=== PATIENT | female | born 1995 | race Caucasian/White ===

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

== ENCOUNTER 2022-10-22 07:36 | Inpatient (IN) ==
[2022-10-22] MEDS ORDERED: OXYTOCIN 30 UNITS/500 ML BAG IV PRN ×3 (08:54→20:18)
[2022-10-22] MEDS ORDERED: LIDOCAINE 1% LOCAL 20 ML VIAL INFIL PRN (08:54)
[2022-10-22] MEDS ORDERED: PENICILLIN G POTASSIUM 6 MU in DEXTROSE 5% 250 ML IV ONE (09:15)
[2022-10-22 09:21] LABS: Hematocrit (blood only) 31.1 % (37.0-47.0); Hemoglobin 10.5 g/dl (12.0-16.0); Mean Corpuscular Hemoglobin 29.3 pg (25.0-34.0); Mean Corpuscular Hgb Conc 33.8 g/dL (32.0-36.0); Mean Corpuscular Volume 86.9 fL (80.0-100.0); Mean Platelet Volume 11.2 fL (9.4-12.4); Platelet Count 201 K/uL (130-400); RDW Coefficient of Variation 13.6 % (11.5-14.5); RDW Standard Deviation 42.4 fL (36.4-46.3); Red Blood Count 3.58 M/uL (4.20-5.40); White Blood Count 8.13 K/ul (4.8-10.8)
[2022-10-22] MEDS: LACTATED RINGER'S 1,000 ML IV PRN ×3 (09:37→16:29)
--- NOTE | 2022-10-22 10:37 | History & Physical Report ---
Date of Service October 22, 2022 Assessment & Plan (1) Encounter for supervision of normal in multigravida, antepartum: Plan: Multiparous female who presents at 39-6/7 weeks with a large for gestational age infant. GBS positive. A cervical balloon was successfully placed as Pitocin induction was begun. GBS prophylaxis was also begun at the initiation of the induction. Anticipate vaginal Epidural when requested. Admission and Anticipated Discharge Date Admission Date: October 22, 2022 History of Present Illness Primary Care Provider: Brianda Sen DO Patient is a 27-year-old 2 para 1-0-0-1 female EDC of 10/23/2022 who presents for induction of labor because of prior macrosomic . Growth scan done at 36 weeks reveals an estimated weight of 8 pounds 4 ounces. was complicated by mild cholestasis of however bile acids have been normal recently. testing has been reassuring. Group B strep is positive. First weighed 9 pounds 5 ounces at 40 weeks. Allergies Allergy/AdvReac Type Severity Reaction Status Date / Time metoclopramide Allergy Severe hives, Verified 10/21/22 15:04 breathing difficulty chlorhexidine Allergy Intermediate blisters Verified 10/21/22 15:04 isopropyl alcohol Allergy Intermediate blisters Verified 10/21/22 15:04 Home Medications Medication Instructions Recorded Confirmed Type No Known Home Medications 05/07/22 10/21/22 History Patient History Medical History (Updated 10/22/22 @ 07:59 by Randa Patterson RN) History of COVID-19 07/2020; loss of taste/smell, fatigue, body aches; resolved. Hyperemesis gravidarum before end of 22 week gestation with dehydration Pap smear vag w ASC-US + Hpv Surgical History H/O colonoscopy H/O ventral hernia repair (01/04/21) Ventral Hernia Open Repair Dr. Lange 01-04-2021 History of appendectomy History of wisdom tooth extraction Family History Other Breast cancer Diabetes Heart disease No family history of adverse response to anesthesia Social History (Updated 10/22/22 @ 08:01 by Randa Patterson, ALTA) Smoking Status: Former smoker Tobacco Type: E-cigarettes / Vaping Cigarettes Per Day: 5 cig per day; Second Hand Exposure: No; Do You Dip or Chew Tobacco: No; Hx Alcohol Use: No Hx Substance Use: No Preferred Language: [place] Citizen Communication Ability: Effective Informatics Nurse Specialist Required: No Beliefs That Will Affect Care: None marital status: Single marital status details: Olayinka Ghosh (31) [phone] Current Living Situation: Significant Other Current Living Situation Comment: Lives with FOSuzanne, her daughter, and Usman's 3 children current occupational status: employed current occupation: Workers Compensation Adjuster @ [employer] How many Children do You have: 1 Other Information That Helps Us Care for You: No Feels Safe at Home: Yes Safety Concerns: Feels Safe At This Time during the past year weight has: remained stable Assistive Devices: Contacts and Glasses Review of Systems All systems reviewed & are unremarkable except as noted in HPI & below Physical Exam Constitutional: WD/WN, vitals as above Psychiatric: A+Ox3, euthymic affect Genitourinary: OB Exam Abdomen: + vertex, + estimated weight (8-9 pounds) and + irregular contractions Manual OB Exam: + cervical dilation 2 cm, + cervical effacement 70% and + station -2 (posterior) OB Exam Monitor Tracing: + external FHT monitor used, + external uterine monitor used, + darell gory I and + normal FHT variability cervix visualized and chaney catheter easily inserted into the cervical os. the balloon was filled with 40 cc sterile water. the catheter was then placed on traction and secured to her left thigh. she tolerated the procedure well. Results & Data Vital Signs (Past 12 Hours) Vital Signs Temp Pulse Resp BP 10/22/22 08:02 98.2 F 18 10/22/22 10:29 88 105/54 L 10/22/22 09:44 80 111/64 10/22/22 07:53 85 127/67 Coding Level of Care Code None Diagnoses Encounter for supervision of normal in multigravida, antepartum Z34.80 CPT Codes Misx Procedure Codes - 16395 Placement of cervical dilator: 47184 Placement of cervical dilator ([id number])
[2022-10-22] MEDS ORDERED: fentaNYL citrate PF 100 MCG/2 ML VIAL ONE (13:27)
[2022-10-22] MEDS ORDERED: ePHEDrine sulfate 50 MG/ML AMP ONE (13:27)
[2022-10-22] MEDS ORDERED: BUPIVACAINE 0.25% PF 30 ML VIAL ONE (13:27)
[2022-10-22] MEDS ORDERED: SODIUM CHLORIDE 0.9% PF INJ 10 ML VIAL ONE (13:27)
[2022-10-22] MEDS ORDERED: fentaNYL 2MCG/ML ROPIVACAINE 1.25MG/ML 100 ML BAG EPI ONE (13:28)
[2022-10-22] MEDS ORDERED: LIDOCAINE 2%/EPINEPHRINE 1:200,000 20 ML PF ONE (13:28)
[2022-10-22] MEDS: PENICILLIN G POTASSIUM 3 MU in DEXTROSE 5% 100 ML IV PRN ×2 (13:39→18:12)
[2022-10-22] MEDS ORDERED: NALBUPHINE HCL INJ 10 MG/ML AMP IV PRN (14:31)
[2022-10-22] MEDS ORDERED: BUPIVACAINE 0.25% PF 30 ML VIAL EPI PRN (14:31)
[2022-10-22] MEDS ORDERED: diphenhydrAMINE 50 MG/ML VIAL IV PRN (14:31)
[2022-10-22] MEDS ORDERED: NALOXONE HCL 1 MG in SODIUM CHLORIDE 0.9% 1000ML 1,000 ML IV PRN (14:31)
[2022-10-22] MEDS ORDERED: ePHEDrine sulfate 50 MG/ML AMP IV PRN (14:31)
[2022-10-22] MEDS ORDERED: fentaNYL 2MCG/ML ROPIVACAINE 1.25MG/ML 100 ML BAG EPI PRN (14:31)
[2022-10-22] MEDS ORDERED: ROPIVACAINE 0.5% PF 5 MG/ML 20 ML VIAL EPI PRN (14:31)
[2022-10-22] MEDS ORDERED: LIDOCAINE 2%/EPINEPHRINE 1:200,000 20 ML PF EPI STA (14:31)
[2022-10-22] MEDS ORDERED: fentaNYL citrate PF 100 MCG/2 ML VIAL EPI PRN (14:31)
[2022-10-22] MEDS ORDERED: SODIUM CHLORIDE 0.9% PF INJ 10 ML VIAL EPI PRN (14:31)
[2022-10-22] MEDS ORDERED: SODIUM CHLORIDE 0.9% PF INJ 10 ML VIAL EPI STA (14:31)
[2022-10-22] MEDS ORDERED: fentaNYL citrate PF 100 MCG/2 ML VIAL EPI STA (14:31)
[2022-10-22] MEDS ORDERED: LIDOCAINE 2% MPF LOCAL 5 ML VIAL EPI PRN (14:31)
[2022-10-22] MEDS ORDERED: NALOXONE HCL 0.4 MG/1 ML VIAL/CARP IV PRN (14:31)
[2022-10-22] MEDS ORDERED: BUPIVACAINE 0.25% PF 30 ML VIAL EPI STA (14:31)
--- NOTE | 2022-10-22 14:31 | Anesthesiology Consultation ---
Date of Service October 22, 2022 Assessment & Plan (1) Encounter for pre-operative examination: Chart Review Chart Review: Patient NOT seen in Pre Admission Testing and Acceptable Risk for Labor Epidural Consults Requested none History Height/Weight Height: 5 ft 4 in Weight: 86.183 kg Allergies Allergy/AdvReac Type Severity Reaction Status Date / Time metoclopramide Allergy Severe hives, Verified 10/21/22 15:04 breathing difficulty chlorhexidine Allergy Intermediate blisters Verified 10/21/22 15:04 isopropyl alcohol Allergy Intermediate blisters Verified 10/21/22 15:04 Medications Home Medications Medication Instructions Recorded Confirmed Last Taken No Known Home Medications 05/07/22 10/21/22 Unknown Active Medications Generic Name Dose Route Start Last Admin Trade Name Freq PRN Reason Stop Dose Admin Lactated Ringer's 1,000 mls @ 125 mls/hr 10/22/22 08:54 10/22/22 13:56 Lr IV 10/24/22 08:53 999 mls/hr .Q8H PRN Infusion L&D Protocol Protocol Penicillin G Potassium 3 mu/ 106 mls @ 100 mls/hr 10/22/22 11:54 10/22/22 13:39 Dextrose IV 11/01/22 11:53 100 mls/hr Q4H PRN Administration GBS(+) Until Delivery Oxytocin 30 units in 500 mls @ 14 mls/hr 10/22/22 08:54 10/22/22 13:57 Pitocin IV 10/24/22 08:53 0.84 units/hr .Q24H PRN 14 mls/hr Labor Induction/Augmentation Titration Protocol 0.84 UNITS/HR Past Medical History Medical History History of COVID-19 07/2020; loss of taste/smell, fatigue, body aches; resolved. Hyperemesis gravidarum before end of 22 week gestation with dehydration Pap smear vag w ASC-US + Hpv Past Family History Family History Other Breast cancer Diabetes Heart disease No family history of adverse response to anesthesia Past Surgical History Surgical History H/O colonoscopy H/O ventral hernia repair (01/04/21) Ventral Hernia Open Repair Dr. Lange 01-04-2021 History of appendectomy History of wisdom tooth extraction Social History Smoking Status: Former smoker tobacco type: cigarettes Smoking cigarettes per day: 5 cig per day Do You Dip or Chew Tobacco: No Hx Alcohol Use: No Hx Substance Use: No substance use type: does not use Physical Exam Vital Signs Last Vital Signs Temp 98.2 F 10/22/22 10:59 Pulse 71 10/22/22 13:58 Resp 20 10/22/22 13:58 BP 109/68 10/22/22 13:58 Testing Laboratory Results 10/22/22 08:41
[2022-10-22] MEDS ORDERED: HYDROCORTISONE ACETATE 25 MG SUPP PR PRN (20:18)
[2022-10-22] MEDS ORDERED: DIPHTHERIA/TETANUS/PERTUSSIS Vaccine (Tdap, Age 7+yrs) 0.5mL SYR/VL IM ONE (20:18)
[2022-10-22] MEDS ORDERED: oxyCODONE/ACETAMINOPHEN 5mg/325mg TAB PO PRN (20:18)
[2022-10-22] MEDS ORDERED: bisacodyL 10 MG SUPP PR PRN (20:18)
[2022-10-22] MEDS ORDERED: ACETAMINOPHEN 325 MG TAB PO PRN (20:18)
[2022-10-22] MEDS ORDERED: BENZOCAINE 20% AER SPR 82.5 GM CAN EXT PRN (20:18)
--- NOTE | 2022-10-22 21:09 | Delivery Summary ---
Vaginal Delivery Summary Date of Service October 22, 2022 Vaginal Delivery Summary [facility] Patient is a 27-year-old 2 para 1-0-0-1 female who presents for induction of labor. Her prior weighed 9 pounds 5 ounces. She received a cervical balloon and Pitocin induction per protocol. The balloon was expelled after several hours. She received effective epidural analgesia. Membranes were ruptured for clear fluid. She progressed to full dilation and pushed effectively over intact perineum for delivery of a viable female infant. After the head was delivered, the shoulders also delivered easily and the was placed on the mother's abdomen for further attention and drying. After initial stimulation she was vigorous, crying, and moving all 4 limbs. The cord was short and therefore was cut and clamped prior to putting the infant on the mother's abdomen. After cord blood was obtained, the placenta was expressed intact with a three-vessel cord. bleeding was controlled with dilute Pitocin and fundal massage. Estimated blood loss was 400 cc. Mother and infant were doing well after delivery. [facility] [place]ag[place] Delivery Charge Delivery Type Details: [facility]
[2022-10-22] MEDS: IBUPROFEN 600 MG TAB PO PRN (22:17)
[2022-10-22] MEDS: DOCUSATE SODIUM 100 MG CAP PO SCH (22:17)
[2022-10-23 06:23] LABS: Hemoglobin 9.3 g/dl (12.0-16.0); Mean Corpuscular Hemoglobin 28.2 pg (25.0-34.0); Mean Corpuscular Hgb Conc 32.1 g/dL (32.0-36.0); Mean Corpuscular Volume 87.9 fL (80.0-100.0); Mean Platelet Volume 11.7 fL (9.4-12.4); Platelet Count 179 K/uL (130-400); RDW Coefficient of Variation 13.6 % (11.5-14.5); RDW Standard Deviation 43.2 fL (36.4-46.3); White Blood Count 12.25 K/ul (4.8-10.8)
--- NOTE | 2022-10-23 07:04 | Obstetrical Progress Note ---
Date of Service <Eduardo Elliott DO - Last Filed: 10/23/22 07:55> October 23, 2022 Assessment & Plan <Eduardo Elliott DO - Last Filed: 10/23/22 07:55> (1) state: - Feels well today. Eating well, voiding well, ambulating well. - Pain well controlled with ibuprofen 600mg Q4H PRN - Routine care -- OOB, ambulation, diet progression as tolerated - After discharge will have 6 week follow-up with Dr. Benson. Day #:: 1 <Juhi Patiño MD, FACOG - Last Filed: 10/23/22 08:17> (1) state: Subjective <Eduardo Elliott DO - Last Filed: 10/23/22 07:55> Ambulation: ambulating normally Voiding: no voiding problems Passing Gas:: Yes Diet Tolerance:: regular diet Lochia:: Small Feeding Type:: breast feeding Current Pain Level(1-10): 0 Review of Systems Denies fever, chills, sweats Denies shortness of breath, difficulty breathing, chest pain, palpitations, chest pressure. Denies breast pain. Denies dysuria. Denies headache or changes in vision. Physical Exam <Eduardo Elliott DO - Last Filed: 10/23/22 07:55> General: Alert, oriented. No acute distress. Cardiac: Regular rate and rhythm, no murmurs/rubs/gallops. Respiratory: Clear to auscultation bilaterally a/p, no wheezes/rales/rhonchi. No increased work of breathing. Symmetrical chest rise. No respiratory distress. Abdomen: Soft, nontender, nondistended. Bowel sounds present. Uterus: Uterine fundus firm, palpable at umbilicus. Lower Extremities: No lower extremity edema or swelling. No deep calf pain. Prabhu's negative bilaterally. Results & Data <Eduardo Elliott DO - Last Filed: 10/23/22 07:55> Vital Signs (Past 12 Hours) Vital Signs Temp Pulse Pulse Resp BP BP Pulse Ox 10/23/22 03:00 37.0 C 64 20 129/71 98 10/22/22 23:15 37.0 C 82 20 118/71 98 10/22/22 21:45 36.7 C 20 10/22/22 20:45 18 10/22/22 21:15 18 10/22/22 20:30 18 10/22/22 19:05 36.7 C 22 10/22/22 20:15 20 10/22/22 20:00 18 10/22/22 19:45 18 10/22/22 21:46 105 H 121/73 10/22/22 21:31 82 115/62 10/22/22 21:16 74 115/62 10/22/22 21:01 73 112/63 10/22/22 20:47 72 98 10/22/22 20:46 70 108/58 L 10/22/22 20:42 77 99 10/22/22 20:37 72 99 10/22/22 20:32 88 100 10/22/22 20:31 75 112/75 10/22/22 20:27 74 99 10/22/22 20:22 74 96 10/22/22 20:17 73 100 10/22/22 20:16 72 109/63 10/22/22 20:12 75 98 10/22/22 20:07 72 99 10/22/22 20:02 79 97 10/22/22 20:01 136 H 104/55 L 10/22/22 19:57 80 98 10/22/22 19:52 87 97 10/22/22 19:47 90 97 10/22/22 19:45 87 104/58 L 10/22/22 19:42 98 10/22/22 19:42 87 10/22/22 19:42 91 H 112/68 10/22/22 19:37 96 H 112/59 L 98 10/22/22 19:32 96 H 99 10/22/22 19:28 100 H 126/58 L 10/22/22 19:27 123 H 100 10/22/22 19:22 94 10/22/22 19:22 111 H 10/22/22 19:22 93 H 129/75 10/22/22 19:17 97 H 100 10/22/22 19:12 99 10/22/22 19:12 96 H 10/22/22 19:12 98 H 112/63 10/22/22 19:07 100 10/22/22 19:07 101 H 10/22/22 19:07 94 H 112/66 O2 Del Method 10/23/22 03:00 Room Air 10/22/22 23:15 Room Air 10/22/22 21:45 10/22/22 20:45 10/22/22 21:15 10/22/22 20:30 10/22/22 19:05 10/22/22 20:15 10/22/22 20:00 10/22/22 19:45 10/22/22 21:46 10/22/22 21:31 10/22/22 21:16 10/22/22 21:01 10/22/22 20:47 10/22/22 20:46 10/22/22 20:42 10/22/22 20:37 10/22/22 20:32 10/22/22 20:31 10/22/22 20:27 10/22/22 20:22 10/22/22 20:17 10/22/22 20:16 10/22/22 20:12 10/22/22 20:07 10/22/22 20:02 10/22/22 20:01 10/22/22 19:57 10/22/22 19:52 10/22/22 19:47 10/22/22 19:45 10/22/22 19:42 10/22/22 19:42 10/22/22 19:42 10/22/22 19:37 10/22/22 19:32 10/22/22 19:28 10/22/22 19:27 10/22/22 19:22 10/22/22 19:22 10/22/22 19:22 10/22/22 19:17 10/22/22 19:12 10/22/22 19:12 10/22/22 19:12 10/22/22 19:07 10/22/22 19:07 10/22/22 19:07 <Juhi Patiño MD, FACOG - Last Filed: 10/23/22 08:17> Co-Signing Physician Notes Resident Physician Supervision Note: I interviewed and examined the patient. Discussed with Dr. Elliott and agree with findings and plan as documented in the note. Any exceptions or clarifications are listed here: [None] Documented By: Juhi Patiño MD, FACOG Resident Activity Tracking <Eduardo Elliott, DO - Last Filed: 10/23/22 07:55> Resident Involvement: Resident Care Provided Care Provided: OB Delivery
--- NOTE | 2022-10-23 07:28 | Anesthesia Procedure Note ---
Date of Service October 23, 2022 Anesthesia Post Epidural Note Vital Signs Vital Signs: Temp Pulse Resp BP Pulse Ox O2 Del Method 37.0 C 64 20 129/71 98 Room Air 10/23/22 03:00 10/23/22 03:00 10/23/22 03:00 10/23/22 03:00 10/23/22 03:00 10/23/22 03:00 Notes Mental Status: alert / awake / arousable and participated in evaluation Nausea / Vomiting: adequately controlled Pain: adequately controlled Airway Patency, RR, SpO2: stable & adequate BP & HR: stable & adequate Hydration State: stable & adequate Neuraxial Anesthesia: was administered and sensory block is resolving Anesthetic Complications: no major complications apparent and Pt Satisfied with anesthetic care Epidural: Removed without complications and With tip intact
[2022-10-23] MEDS: DOCUSATE SODIUM 100 MG CAP PO SCH ×2 (08:36→20:31)
[2022-10-23] MEDS: IBUPROFEN 600 MG TAB PO PRN ×3 (08:36→20:31)
[2022-10-23] MEDS: PRENATAL VITAMIN 1 TAB PO SCH (08:36)
[2022-10-23] MEDS ORDERED: bisacodyL 5 MG TABEC PO SCH (20:00)
[2022-10-24] MEDS: IBUPROFEN 600 MG TAB PO PRN ×3 (02:19→10:13)
--- NOTE | 2022-10-24 06:35 | Obstetrical Progress Note ---
Date of Service October 24, 2022 Assessment & Plan (1) state: Plan stable routine care. dc home. instructions reviewed. f/u 6wk pp check. rh pos, ri, . will likely go to nesting today due to baby status. Day #:: 2 Subjective Ambulation: ambulating normally Voiding: no voiding problems Diet Tolerance:: regular diet Lochia:: Small Feeding Type:: breast feeding some uterine cramps/tenderness. no other complaints. baby in INBN getting O2. Constitutional: + as per Subjective / HPI Physical Exam Constitutional WD/WN, vitals as above Respiratory normal respiratory effort, lungs clear to auscultation Cardiovascular Rate/Rhythm: regular rate and regular rhythm Gastrointestinal (Abdomen) Inspection/Auscultation: abdomen normal to inspection Percussion/Palpation: abdomen soft Fundus firm 2cm down Musculoskeletal nt calves no edema Neurologic grossly normal Psychiatric A+Ox3, euthymic affect Results & Data Vital Signs (Past 12 Hours) Vital Signs Temp Pulse Resp BP Pulse Ox O2 Del Method 10/24/22 02:29 98.1 F 70 16 115/73 96 Room Air 10/23/22 20:15 98.1 F 76 18 116/74 98 Room Air
[2022-10-24] MEDS: DOCUSATE SODIUM 100 MG CAP PO SCH (10:13)
[2022-10-24] MEDS: PRENATAL VITAMIN 1 TAB PO SCH (10:13)
== END 2022-10-24 18:15 | disposition home or self-care (01) | DRG 807 ==
LOC: 4S1 07:36 → 4E2 22:48